=== PATIENT | female | born 1975 | race Caucasian/White ===

== ENCOUNTER 2018-07-27 10:30 | Outpatient (RCR) | payer OTHER, SELFPAY | END 2018-07-27 10:35 | disposition home or self-care (01) | LOC: PT 10:30 | PROVIDERS: Family Provider Internal Medicine; Visit Provider Orthopaedic Surgery | DX: M25.511 Pain in right shoulder (principal); M75.81 Other shoulder lesions, right shoulder; M75.41 Impingement syndrome of right shoulder | CPT/HCPCS: 97010; 97012; 97014; 97016; 97033; 97035; 97110; 97140; 97163; 97164; G0283 ==

== ENCOUNTER 2018-11-28 09:00 | Outpatient (RCR) | payer OTHER, SELFPAY | END 2018-11-28 09:05 | disposition home or self-care (01) | LOC: PT 09:00 | PROVIDERS: Visit Provider Orthopaedic Surgery | DX: Z96.611 Presence of right artificial shoulder joint (principal) | CPT/HCPCS: 97010; 97014; 97016; 97110; 97140; 97163; 97164; G0283 ==